=== PATIENT | female | born 1950 | race Caucasian/White ===

== ENCOUNTER 2024-10-22 09:12 | Emergency (ER) | payer MEDICARE ==
[~2024-10-22] VITALS: Ht 157.5 cm; Wt 72.3 kg
[2024-10-22] MEDS ORDERED: LOSARTAN POTASS25 MG PO (09:54)
[2024-10-22] MEDS ORDERED: CRESTOR40 MG (09:54)
[2024-10-22] MEDS ORDERED: LETROZOLE2.5 MG (09:54)
[2024-10-22] MEDS ORDERED: KEFLEX125 MG/5 M PO (10:09)
[2024-10-22] MEDS ORDERED: CEPHALEXIN500 M1 PO (10:13)
[2024-10-22 10:32] VITALS: PULSE 83; RESP 16; TEMP 98.3; O2SAT 99
[2024-10-22] MEDS: CEPHALEXIN 500 MG CAP PO SCH (10:33)
== END 2024-10-22 10:32 | disposition home or self-care (01) ==
LOC: FSED 09:19
DX: R30.0 Dysuria (principal); N39.0 Urinary tract infection, site not specified; R31.9 Hematuria, unspecified; I10 Essential (primary) hypertension; Z85.3 Personal history of malignant neoplasm of breast; Z79.60 Long term (current) use of unspecified immunomodulators and immunosuppressants
CPT/HCPCS: 81003; 87086; 99283